=== PATIENT | female | born 1990 ===

== ENCOUNTER 2020-09-15 10:04 | Emergency (ER) | payer SELFPAY ==
[2020-09-15 10:10] VITALS: BP 124/79
--- NOTE | 2020-09-15 10:18 | Emergency Department Report ---
ED Lower Extremity HPI - General Chief Complaint: Extremity Injury, Lower Stated Complaint: RT FOOT INJURY X 2 DAYS Time Seen by Provider: 09/15/20 10:08 Source: patient Mode of arrival: Ambulatory Limitations: No Limitations - History of Present Illness Initial Comments: 29-year-old female presents to the ER today with complaints of right foot injury. Patient states that she was walking down her driveway. She states that the driveway is uneven, half grass half pavement and therefore while walking down the driveway she lost her balance and fell right foot. She reports pain mainly to the lateral aspect of the right foot. She did have some swelling but she states it improved this morning. Pain is worse on palpation, ambulation and weightbearing. She reports no other symptoms at this time. MD Complaint: foot injury -: Sudden (yesterday) Injury: Foot: Right - Related Data Previous Rx's Medication Instructions Recorded Last Taken Type Ibuprofen [Motrin] 800 mg PO Q8HR PRN #30 tablet 09/15/20 Unknown Rx Allergies Allergy/AdvReac Type Severity Reaction Status Date / Time No Known Allergies Allergy Unverified 09/15/20 10:06 ED Review of Systems ROS: Stated complaint: RT FOOT INJURY X 2 DAYS Other details as noted in HPI Comment: All other systems reviewed and negative Constitutional: denies: chills, fever Eyes: denies: eye pain, eye discharge, vision change ENT: denies: ear pain, throat pain Respiratory: denies: cough, shortness of breath, wheezing Genitourinary: denies: urgency, dysuria, discharge Musculoskeletal: joint swelling, arthralgia Skin: denies: rash, lesions Neurological: denies: headache, weakness, paresthesias Psychiatric: denies: anxiety, depression Hematological/Lymphatic: denies: easy bleeding, easy bruising ED Past Medical Hx - Past Medical History Previous Medical History?: Yes Additional medical history: ANEMIA - Surgical History Additional Surgical History: TUBAL - Social History Smoking Status: Never Smoker Substance Use Type: None - Medications Home Medications: Home Medications Medication Instructions Recorded Confirmed Last Taken Type Ibuprofen [Motrin] 800 mg PO Q8HR PRN #30 tablet 09/15/20 Unknown Rx ED Physical Exam - General Limitations: No Limitations General appearance: alert, in no apparent distress - Head Head exam: Present: atraumatic, normocephalic, normal inspection - Respiratory Respiratory exam: Absent: respiratory distress - Cardiovascular Cardiovascular Exam: Present: regular rate - Neurological Exam Neurological exam: Present: alert, oriented X3, CN II-XII intact, other (Mild limping gait but otherwise normal) - Psychiatric Psychiatric exam: Present: normal affect, normal mood - Skin Skin exam: Present: intact ED Course Vital Signs 09/15/20 10:09 Temperature 98.7 F Pulse Rate 88 Respiratory 18 Rate Blood Pressure 124/79 [Right] O2 Sat by Pulse 98 Oximetry ED Lower Extremity MDM - Radiology Data Radiology results: report reviewed Critical care attestation.: If time is entered above; I have spent that time in minutes in the direct care of this critically ill patient, excluding procedure time. ED Disposition Clinical Impression: Sprain of foot, right Disposition: - TO HOME OR SELFCARE Is pt being admited?: No Does the pt Need Aspirin: No Condition: Stable Instructions: Foot Sprain Additional Instructions: Rest, ice and elevate foot for the next 3-4 days. Take the motrin as prescribed. Use teri wrap as instructed. Follow up with Geospatial Scientist in 1 week if not better. Return to ED if worse. Prescriptions: Ibuprofen [Motrin] 800 mg PO Q8HR PRN #30 tablet PRN Reason: pain Referrals: BEN AVALOS MD [Staff Physician] - 7-10 days Time of Disposition: 11:10
--- NOTE | 2020-09-15 11:06 | XRay Report ---
RIGHT FOOT 3 VIEW(S) INDICATION / CLINICAL INFORMATION: Fall/injury/pain COMPARISON: None available. FINDINGS: BONES / JOINT(S): No acute fracture or subluxation. No significant arthritis. SOFT TISSUES: No significant abnormality. ADDITIONAL FINDINGS: Type I accessory navicular bone Signer Name: Mahad Carsno MD Signed: 09/15/2020 11:02 AM Workstation Name: [id number]
== END 2020-09-15 11:26 | disposition home or self-care (01) ==
LOC: ED 10:04
DX: S93.601A Unspecified sprain of right foot, initial encounter (principal); Z79.899 Other long term (current) drug therapy; W18.30XA Fall on same level, unspecified, initial encounter; Y93.89 Activity, other specified; Y92.89 Other specified places as the place of occurrence of the external cause; Y99.8 Other external cause status
CPT/HCPCS: 99283